=== PATIENT | female | born 1985 | race Caucasian/White ===

== ENCOUNTER 2018-02-22 16:22 | Emergency (ER) | payer OTHER, SELFPAY ==
[2018-02-22 16:38] VITALS: BP 133/81; PULSE 113; RESP 20; TEMP 36.1; O2SAT 100
[2018-02-22 16:45] LABS: Bacteria Urine None Seen; RBC Urine None Seen (0-5/HPF); WBC Urine None Seen (0-5/HPF)
[2018-02-22 16:46] LABS: Appearance Urine UA CLOUDY; Bilirubin Urine UA NEGATIVE (NEGATIVE); Color Urine UA YELLOW; Glucose Urine UA NEGATIVE (Normal); Ketones Urine UA NEGATIVE (NEGATIVE); Leukocyte Esterase Urine UA NEGATIVE (NEGATIVE); Nitrite Urine UA Negative (Negative); Occult Blood Urine UA NEGATIVE (Negative); Protein Urine UA NEGATIVE (Negative); Specific Gravity Urine UA 1.015 (1.000-1.035); Urobilinogen Urine UA 0.2 E.U./dL (0.2); pH Urine UA 7.5 (4.5-8.0)
[2018-02-22 16:54] LABS: Amorphous Sediment Urine 4+; Squamous Epithelial Cell Urine 0-1 /HPF
[2018-02-22 17:37] VITALS: BP 129/77; PULSE 129; RESP 24; O2SAT 100
--- NOTE | 2018-02-22 17:37 | DI.US.S_ITS ---
PROCEDURE: US OB >= 14 WEEKS FETUS INDICATIONS: 32 year-old female with abdominal pain. OUTSIDE/PRIOR DATING DATA: Last menstrual period (LMP): November 24, 2017. LMP-based estimated date of delivery (NALLELY): August 31, 2018. First dating scan (date and location): Present study. Estimated date of delivery (NALLELY) from first dating scan: August 26, 2018. TECHNIQUE: Real-time scanning was performed of the fetus, with image documentation and biometric measurements. Endovaginal scanning: Not requested. COMPARISON: None. FINDINGS: General: A single living intrauterine gestation is present. Presentation: Transverse, head to the right. Placenta: Placental position is posterior. There is trace anechoic fluid posterior to the placenta, of uncertain clinical significance. Amniotic fluid index: Qualitatively normal in amount. heart rate: Normal at 171 beats per minute. Maternal cervical canal: 4.0 cm long. Normal lower limit is 2.5 cm. biometrics: Biparietal diameter: 2.3 cm equals 13 weeks 6 days. Head circumference: 8.4 cm equals 13 weeks 5 days. Abdominal circumference: 7.3 cm equals 13 weeks 6 days. Femur length: 1.0 cm equals 13 weeks zero days. Estimated gestational age from initial scan: not applicable. Composite gestational age from present scan: 13 weeks 4 days. Measurement variability for biometric dating: +/- 7 days from 14 weeks to 15 weeks 6 days gestation, +/- 10 days from 16 weeks to 21 weeks 6 days gestation, +/- 2 weeks from 22 weeks to 27 weeks 6 days gestation, +/- 3 weeks for 28 weeks gestation or later. weight reference: 4500 g or EFW >90/95% is considered macrosomia or large for gestational age. EFW <10% is small for gestational age. EFW 5% or less is considered intra-uterine growth restriction. Anatomic survey: Not performed due to early gestational age. IMPRESSION: 1. Single living intrauterine gestation, with ultrasound derived estimated gestational age of 13 weeks 4 days, +/-7 days. With the same measurement variability, ultrasound derived dating is concordant with dating derived from the last menstrual period. 2. Trace fluid deep to the posterior placenta is of uncertain clinical significance. In general, ultrasound has limited accuracy in diagnosing placental abruption. Dictated by: Hussain Colunga M.D. on 02/22/2018 at 18:53 Approved by: Hussain Colunga M.D. on 02/22/2018 at 19:01
--- NOTE | 2018-02-22 18:04 | PC.NURSE ---
patient refused IV. provider notified. lab in to draw bloodwork.
--- NOTE | 2018-02-22 18:09 | ED_ITS ---
HPI - <Frantz Dunnesanjana, DO - Last Filed: 02/22/18 18:09> General Chief complaint: Urogenital-Female Stated complaint: 13 WKS PRESSURE THAT STAYS AND STABBING P Time Seen by Provider: 02/22/18 16:32 <Jamaal Segundo DO - Last Filed: 02/23/18 08:52> General Source: patient and family Mode of arrival: ambulatory Limitations: no limitations History of Present Illness HPI Narrative: 32-year-old female is a at 13 weeks with a chief complaint of lower pelvic discomfort over the past day or 2. She denies any vaginal bleeding. She denies fever or chills. She denies any vaginal discharge. She denies dysuria, frequency or urgency. She is visiting locally from [place] and will flying internationally in the next few days MD Complaint: abdominal pain Onset (ago): day(s) Pain Consistency: constant Location: pelvis Severity: moderate Severity scale (1-10): 5 Quality: Aching and Constant Radiation: pelvis Relieving factors: none Exacerbating factors: none Associated symptoms: denies other symptoms Vaginal discharge: none Vaginal bleeding: none OB History - Current : no complications OB History - Previous Pregnancies: no complications care: followed by OB and previous ultrasound confirms IUP <Jamaal Segundo, DO - Last Filed: 02/23/18 08:52> Review of Systems All systems reviewed & are unremarkable except as noted in HPI and below Constitutional Denies chills, Denies fever(s), Denies lethargy and Denies weakness Eyes Denies change in vision, Denies eye discharge, Denies irritation and Denies loss of vision ENT Ears, Nose, Mouth, and Throat: Denies change in voice, Denies neck pain and Denies sore throat Cardiovascular Denies chest pain, Denies irregular heart rhythm, Denies lightheadedness, Denies palpitations, Denies dyspnea, Denies dyspnea on exertion and Denies orthopnea Respiratory Denies cough, Denies dyspnea, Denies dyspnea on exertion and Denies wheezing Gastrointestinal Gastrointestinal: Denies abdominal pain, Denies change in bowel habits, Denies diarrhea, Denies nausea and Denies vomiting Genitourinary Denies hematuria, Reports pelvic pain, Denies flank pain, Denies urinary incontinence and Denies urinary urgency Musculoskeletal Denies neck pain Integumentary/Breasts Denies pruritus, Denies erythema, Denies rash and Denies wounds Neurologic Denies confusion, Denies loss of vision and Denies weakness Psychiatric Denies anxiety, Denies confusion, Denies depression, Denies homicidal ideation and Denies suicidal ideation Endocrine Denies palpitations Hematologic/Lymphatic Denies easy bruising Allergic/Immunologic Denies wheezing Exam <Frantz Hanna DO - Last Filed: 02/22/18 18:09> Initial Vital Signs Initial Vital Signs: Vital Signs Temperature 97.0 F L 02/22/18 16:38 Pulse Rate 113 H 02/22/18 16:38 Respiratory Rate 20 02/22/18 16:38 Blood Pressure 133/81 H 02/22/18 16:38 Pulse Oximetry 100 02/22/18 16:38 <Jamaal Segundo DO - Last Filed: 02/23/18 08:52> Initial Vital Signs Initial Vital Signs: Vital Signs Temperature 97.0 F L 02/22/18 16:38 Pulse Rate 113 H 02/22/18 16:38 Respiratory Rate 20 02/22/18 16:38 Blood Pressure 133/81 H 02/22/18 16:38 Pulse Oximetry 100 02/22/18 16:38 Const General: cooperative and well developed Nutritional Appearance: well nourished Orientation: alert, awake, oriented x3 and not confused Eyes General: appearance normal, both eyes and all related structures Eyelids: eyelids normal Conjunctivae: conjunctivae normal Sclera: sclerae normal Pupils: PERRL EOM: EOM intact bilaterally Chest Chest: normal inspection of the chest Resp Effort & Inspection: normal respiratory effort, able to speak in complete sentences, no respiratory distress and no use of accessory muscles Auscultation: clear to auscultation bilaterally, no rales, no rhonchi and no wheezes Cardio Rate: regular rate Rhythm: regular rhythm Heart Sounds: no click, no gallops, no murmurs and no rubs Pulses: normal peripheral pulses GI Inspection: non-distended Palpation: soft, no hepatosplenomegaly, No guarding, No pulsatile mass and tender (In suprapubic region) Auscultation: normal bowel sounds Course <DO Gregorio Barrios Last Filed: 02/22/18 18:09> Orders Ordered: ED Orders 02/22/18 16:41 Urinalysis and Microscopic Stat 02/22/18 17:37 US OB >= 14 weeks Fetus Stat 02/22/18 18:00 Basic Metabolic Panel Stat Complete Blood Count AUTO DIFF Stat HCG Quantitative Stat Vital Signs - 8 hr 02/22/18 16:38 02/22/18 17:37 02/22/18 18:43 Temperature 97.0 F L Pulse Rate 113 H 129 H 122 H Respiratory Rate 20 24 Blood Pressure 133/81 H Blood Pressure [Left Arm] 129/77 H 118/75 Pulse Oximetry 100 100 100 <Jamaal Segundo DO - Last Filed: 02/23/18 08:52> Orders Ordered: ED Orders 02/22/18 16:41 Urinalysis and Microscopic Stat 02/22/18 17:37 US OB >= 14 weeks Fetus Stat 02/22/18 18:00 Basic Metabolic Panel Stat Complete Blood Count AUTO DIFF Stat HCG Quantitative Stat Consultations Consultation #1: Discussion with on-call OB, Dr. Ortega, whom suggests there is no contraindication to travel in the patient may follow with her Ob upon return home. Should she develop any bleeding or worsening pain the patient will return to the emergency department Vital Signs - 8 hr 02/22/18 16:38 02/22/18 17:37 02/22/18 18:43 Temperature 97.0 F L Pulse Rate 113 H 129 H 122 H Respiratory Rate 20 24 Blood Pressure 133/81 H Blood Pressure [Left Arm] 129/77 H 118/75 Pulse Oximetry 100 100 100 MDM - OB/Uterine Contractions <Frantz Hanna DO - Last Filed: 02/22/18 18:09> Lab Data Result diagrams: 02/22/18 18:00 02/22/18 18:00 Lab Results 02/22/18 02/22/18 02/22/18 Range/Units 16:41 18:00 18:00 WBC 8.5 (4.5-11.0) X10^3/uL RBC 4.07 (4.0-5.2) X10^6/uL Hgb 12.5 (12.0-16.0) g/dL Hct 36.3 (36-46) % MCV 89.2 (80-100) fL MCH 30.6 (26-34) PG MCHC 34.3 (30-36) % RDW 12.7 (11.6-14.8) % Plt Count 306 (150-400) X10^3/uL Neut % (Auto) 73.7 (50-75) % Lymph % (Auto) 19.5 L (25-40) % Russell % (Auto) 5.8 (3-14) % Eos % (Auto) 0.6 L (2-4) % Baso % (Auto) 0.4 (0-2) % Neut # (Auto) 6300 H (2808-0536) /uL Sodium 138 (137-145) mmol/L Potassium 4.0 (3.4-5.1) mmol/L Chloride 103 (98-107) mmol/L Carbon Dioxide 23 (22-32) mmol/L BUN 12 (7-17) mg/dL Creatinine 0.50 L (0.52-1.04) mg/dL Estimated GFR > 60.0 (>60) mL/min BUN/Creatinine Ratio 24.0 H (6-22) Glucose 98 (70-100) mg/dL Calcium 9.7 (8.4-10.2) mg/dL HCG, Quant 89279 mIU/mL Urine Color Yellow Urine Appearance Cloudy Urine pH 7.5 (4.5-8.0) Ur Specific [place] 1.015 (1.000-1.035) Urine Protein Negative (Negative) Urine Glucose (UA) Negative (Normal) g/dL Urine Ketones Negative (NEGATIVE) Urine Occult Blood Negative (Negative) Urine Nitrate Negative (Negative) Urine Bilirubin Negative (NEGATIVE) Urine Urobilinogen 0.2 (0.2) E.U./dL Ur Leukocyte Esterase Negative (NEGATIVE) Urine RBC None seen (0-5/HPF) Urine WBC None seen (0-5/HPF) Ur Squamous Epith Cells 0-1 /hpf Amorphous Sediment 4+ Urine Bacteria None seen (None) Ur Culture Indicated? Not Reportable Micro UA Comment Not Reportable <Jamaal Segundo, DO - Last Filed: 02/23/18 08:52> Lab Data Lab Results 02/22/18 02/22/18 02/22/18 Range/Units 16:41 18:00 18:00 WBC 8.5 (4.5-11.0) X10^3/uL RBC 4.07 (4.0-5.2) X10^6/uL Hgb 12.5 (12.0-16.0) g/dL Hct 36.3 (36-46) % MCV 89.2 (80-100) fL MCH 30.6 (26-34) PG MCHC 34.3 (30-36) % RDW 12.7 (11.6-14.8) % Plt Count 306 (150-400) X10^3/uL Neut % (Auto) 73.7 (50-75) % Lymph % (Auto) 19.5 L (25-40) % Russell % (Auto) 5.8 (3-14) % Eos % (Auto) 0.6 L (2-4) % Baso % (Auto) 0.4 (0-2) % Neut # (Auto) 6300 H (5296-1283) /uL Sodium 138 (137-145) mmol/L Potassium 4.0 (3.4-5.1) mmol/L Chloride 103 (98-107) mmol/L Carbon Dioxide 23 (22-32) mmol/L BUN 12 (7-17) mg/dL Creatinine 0.50 L (0.52-1.04) mg/dL Estimated GFR > 60.0 (>60) mL/min BUN/Creatinine Ratio 24.0 H (6-22) Glucose 98 (70-100) mg/dL Calcium 9.7 (8.4-10.2) mg/dL HCG, Quant 55518 mIU/mL Urine Color Yellow Urine Appearance Cloudy Urine pH 7.5 (4.5-8.0) Ur Specific [place] 1.015 (1.000-1.035) Urine Protein Negative (Negative) Urine Glucose (UA) Negative (Normal) g/dL Urine Ketones Negative (NEGATIVE) Urine Occult Blood Negative (Negative) Urine Nitrate Negative (Negative) Urine Bilirubin Negative (NEGATIVE) Urine Urobilinogen 0.2 (0.2) E.U./dL Ur Leukocyte Esterase Negative (NEGATIVE) Urine RBC None seen (0-5/HPF) Urine WBC None seen (0-5/HPF) Ur Squamous Epith Cells 0-1 /hpf Amorphous Sediment 4+ Urine Bacteria None seen (None) Ur Culture Indicated? Not Reportable Micro UA Comment Not Reportable Imaging Data US - abdomen: Radiologist's impression: PROCEDURE: US OB >= 14 WEEKS FETUS INDICATIONS: 32 year-old female with abdominal pain. OUTSIDE/PRIOR DATING DATA: Last menstrual period (LMP): November 24, 2017. LMP-based estimated date of delivery (NALLELY): August 31, 2018. First dating scan (date and location): Present study. Estimated date of delivery (NALLELY) from first dating scan: August 26, 2018. TECHNIQUE: Real-time scanning was performed of the fetus, with image documentation and biometric measurements. Endovaginal scanning: Not requested. COMPARISON: None. FINDINGS: General: A single living intrauterine gestation is present. Presentation: Transverse, head to the right. Placenta: Placental position is posterior. There is trace anechoic fluid posterior to the placenta, of uncertain clinical significance. Amniotic fluid index: Qualitatively normal in amount. heart rate: Normal at 171 beats per minute. Maternal cervical canal: 4.0 cm long. Normal lower limit is 2.5 cm. biometrics: Biparietal diameter: 2.3 cm equals 13 weeks 6 days. Head circumference: 8.4 cm equals 13 weeks 5 days. Abdominal circumference: 7.3 cm equals 13 weeks 6 days. Femur length: 1.0 cm equals 13 weeks zero days. Estimated gestational age from initial scan: not applicable. Composite gestational age from present scan: 13 weeks 4 days. Measurement variability for biometric dating: +/- 7 days from 14 weeks to 15 weeks 6 days gestation, +/- 10 days from 16 weeks to 21 weeks 6 days gestation, +/- 2 weeks from 22 weeks to 27 weeks 6 days gestation, +/- 3 weeks for 28 weeks gestation or later. weight reference: 4500 g or EFW >90/95% is considered macrosomia or large for gestational age. EFW <10% is small for gestational age. EFW 5% or less is considered intra-uterine growth restriction. Anatomic survey: Not performed due to early gestational age. IMPRESSION: 1. Single living intrauterine gestation, with ultrasound derived estimated gestational age of 13 weeks 4 days, +/-7 days. With the same measurement variability, ultrasound derived dating is concordant with dating derived from the last menstrual period. 2. Trace fluid deep to the posterior placenta is of uncertain clinical significance. In general, ultrasound has limited accuracy in diagnosing placental abruption. Dictated by: Hussain Colunga M.D. on 02/22/2018 at 18:53 Approved by: Hussain Colunga M.D. on 02/22/2018 at 19:01 Discharge Plan Departure Patient Disposition: Home, Self-Care Clinical Impression: Pelvic pain affecting Discharge Date/Time: 02/22/18 19:58 Interventions: ED Discharge Assessment Last Done: 02/22/18 19:57 Instructions: DI for Pelvic Pain Activity Restrictions/Additional Instructions: *You have been diagnosed with [ pelvic pain in , possible small placental abruption ] *What to do: *Follow up with your Sales Expert when you get home, for a repeat ultrasound *Return to ER if you should have worsening pain, vaginal bleeding, or other bothersome symptoms
[2018-02-22 18:27] LABS: Add Manual Diff / Slide Review NO; Basophils Percent Auto 0.4 % (0-2); Eosinophils Percent Auto 0.6 % (2-4); Hematocrit 36.3 % (36-46); Hemoglobin 12.5 g/dL (12.0-16.0); Lymphocytes Percent Auto 19.5 % (25-40); Mean Corpuscular HGB Conc 34.3 % (30-36); Mean Corpuscular Hemoglobin 30.6 PG (26-34); Mean Corpuscular Volume 89.2 fL (80-100); Monocytes Percent Auto 5.8 % (3-14); Neutrophils Absolute Auto 6300 /uL (3000-5900); Neutrophils Percent Auto 73.7 % (50-75); Platelet Count 306 X10^3/uL (150-400); Red Blood Cell Count 4.07 X10^6/uL (4.0-5.2); Red Cell Distribution Width 12.7 % (11.6-14.8); White Blood Cell Count 8.5 X10^3/uL (4.5-11.0)
[2018-02-22 18:29] LABS: Blood Urea Nitrogen 12 mg/dL (7-17); Calcium 9.7 mg/dL (8.4-10.2); Carbon Dioxide 23 mmol/L (22-32); Chloride 103 mmol/L (98-107); Estimated Glomerular Filt Rate > 60.0 mL/min (>60); Glucose 98 mg/dL (70-100); HEMOLYSIS < 15 (0-50); Sodium 138 mmol/L (137-145)
[2018-02-22 18:43] VITALS: BP 118/75; PULSE 122; O2SAT 100
--- NOTE | 2018-02-22 18:48 | PC.NURSE ---
patient is extremely anxious and awaiting results of ultrasound. this is reported to dr. vazquez who states he will be in to talk to her. relayed this information to both the patient and her visitor.
[2018-02-22 19:19] LABS: HCG Quantitative /Beta subunit 82542 mIU/mL
[2018-02-22 19:57] VITALS: BP 115/70; PULSE 112; RESP 16; TEMP 36.8; O2SAT 100
== END 2018-02-22 19:58 | disposition home or self-care (01) ==
PROVIDERS: Emergency Provider Emergency Medicine
DX: O26.891 Other specified pregnancy related conditions, first trimester (principal); R10.9 Unspecified abdominal pain; Z3A.13 13 weeks gestation of pregnancy
CPT/HCPCS: 76811; 80048; 81001; 84702; 85025; 99283; 99284